=== PATIENT | male | born 1975 | race Caucasian/White ===

== ENCOUNTER 2017-07-03 20:28 | Emergency (ER) | payer SELFPAY ==
[~2017-07-03] VITALS: Ht 172.7 cm; Wt 102.1 kg
--- NOTE | ~2017-07-03 | CT4 ---
[facility] A Service of [facility] RADIOLOGY TEXT RESULTS PATIENT: ROBERTO PAULSON LOCATION: SED : 71 UNIT #: [id number] AGE: [address]: Dexter Chu MD SEX: M ORDER DR: [id number] [place] [id number] MR#: [id number] Acc #: [id number] NAME: ROBERTO PAULSON. : 1975 SEX: M STUDY DATE/TIME: 07/03/2017 21:45 UNIT: SED ROOM: STUDY DESCRIPTION: CT Abd and Pelv Wo Cont Attending Physician: Dexter Chu M.D. Ordering Physician: Dexter Chu M.D. Primary Care Physician: Primary Care Physician No MEDICAL IMAGING REPORT This report is preliminary unless electronic signature is present. EXAM CT abdomen and pelvis without contrast DATE: 07/03/2017 HISTORY Right flank pain and inability to urinate. Onset symptoms of 17:00 today. COMPARISON None. PROCEDURE 3 mL noncontrast axial images through the abdomen and pelvis. Sagittal and coronal reformed images were obtained. Enteric contrast was not administered. The CT exam was performed with one or more of the following radiation dose reduction techniques: automatic exposure control, adjustment of mA and/or kV according to patient size, and iterative reconstruction. Abdomen findings: There is very mild right hydronephrosis and right hydroureter. A 3 mm stone is seen within the urinary bladder lumen at or just past the ureterovesical junction thought to represent a recently passed stone. Urinary bladder is decompressed with Benton catheter. No left renal or ureteral calculus is identified. Lung bases are clear. The liver, gallbladder, spleen, pancreas, adrenals are within normal limits. The appendix is normal. Unopacified bowel appears noninflamed. Pelvis findings: Prostate gland and rectum are normal. No pelvic adenopathy or free fluid. [facility] A Service of [facility] RADIOLOGY TEXT RESULTS PATIENT: ROBERTO PAULSON LOCATION: SED : 71 UNIT #: [id number] AGE: [address]: Dexter Chu MD SEX: M ORDER DR: Mild facet arthropathy at L5-S1 bilaterally. IMPRESSION 1. There is mild right hydronephrosis and hydroureter. A 3 mm stone is seen within the urinary bladder lumen at and just passing the S5 junction likely representing a recently passed right renal stone. 2. No intrarenal renal calculi are seen. 3. The appendix is normal. 1. Dictated by... Kaci Galvan M.D. THIS IS AN ELECTRONICALLY VERIFIED REPORT Kaci Galvan M.D. at 07/06/2017 9:53 AM YULIA/jennifer TD: 07/05/2017 07:55 JOB #: [id number] MEDICAL IMAGING REPORT Page 1 of 1
[2017-07-03 21:17] LABS: URINE SOURCE CLEAN CATCH
[2017-07-03 21:19] LABS: URINE APPEARANCE CLEAR; URINE BILIRUBIN NEG (NEG); URINE BLOOD 2+ (NEG); URINE COLOR YELLOW; URINE GLUCOSE NEG (NORM); URINE KETONE 1+ (NEG); URINE LEUKOCYTE ESTERASE NEG (NEG); URINE NITRATE NEG (NEG); URINE PH 6.5 (5-8); URINE PROTEIN TRACE (NEG); URINE UROBILINOGEN 0.2 MG/DL (NORM)
[2017-07-03 21:25] LABS: MICRO INDICATED? YES
[2017-07-03 21:26] LABS: CULTURE INDICATED? NO; URINE BACTERIA NEG (NEG); URINE SQUAMOUS EPITHELIAL CELL OCCAS /[HPF]; URINE TRANSITIONAL EPI CELLS OCCAS /[HPF]
[2017-07-03 21:27] LABS: URINE HYALINE CAST 0-2 /[HPF]; URINE MUCUS PRESENT
[2017-07-03 21:38] LABS: BASOPHIL# 0.1 X10e3 (0-0.3); BASOPHIL% 0.8 % (0-2.5); DIFF IND NO; EOSINOPHIL# 0.2 X10e3 (0-0.7); EOSINOPHIL% 2.6 % (0.0-7.0); HEMATOCRIT 46.3 % (38.0-50.0); LYMPHOCYTE# 1.3 X10e3 (1.0-3.5); LYMPHOCYTE% 14.3 % (17.0-45.0); MEAN CELL VOLUME 85.9 FL (83-96); MEAN CORPUSCULAR HEMOGLOBIN 29.6 PG (28-34); MEAN CORPUSCULAR HGB CONC 34.5 g/dL (30-36); MEAN PLATELET VOLUME 8.6 FL (6.5-11.5); MONOCYTE# 0.7 X10e3 (0-1.0); MONOCYTE% 7.9 % (3.0-12.0); NEUTROPHIL# 6.7 X10e3 (1.5-7.1); NEUTROPHIL% 74.4 % (40-75); PLATELET COUNT 218 X10e3 (140-420); RED BLOOD COUNT 5.39 X10e (3.90-5.60); RED CELL DISTRIBUTION WIDTH 13.4 % (11.0-15.5)
[2017-07-03 22:05] LABS: BUN/CREATININE RATIO 11.66; CREATININE SERUM 1.2 mg/dL (0.6-1.4); GLOM FILT RATE Estimated 73.1 mL/min (>60)
[2017-07-03 22:07] LABS: POTASSIUM 2.9 mmol/L (3.5-5.1)
== END 2017-07-03 22:46 | disposition home or self-care (01) ==
LOC: SED 20:28
PROVIDERS: Emergency Medicine
DX: N13.2 Hydronephrosis with renal and ureteral calculous obstruction (principal); E87.6 Hypokalemia
CPT/HCPCS: 36415; 74176; 80048; 81003; 85025; 96361; 96374; 99284; J1885